=== PATIENT | male | born 1945 | race Caucasian/White ===

== ENCOUNTER 2025-04-12 00:05 | Emergency (ER) | payer MEDICARE, OTHER ==
[~2025-04-12] VITALS: Ht 175.3 cm; Wt 91.0 kg
--- NOTE | 2025-04-12 01:12 | Physician Documentation ---
History of Present Illness ~ Chief Complaint: Groin Pain Stated Complaint: GROIN PAIN Time Seen by MD: 01:11 Mode of Arrival: POV HPI Patient presents to the emergency room for evaluation of right groin pain. 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 He does not have a primary care provider. He had ultrasound performed recently which showed possible epididymitis. He underwent two rounds of antibiotics with no improvement of symptoms. Tonight he had increased right groin pain which was severe in nature however that has greatly improved. He does state that has sometimes hernia we will come out and he is to ice it to push it back in. No dysuria. No fevers. Medication Reconciliation Allergies: Coded Allergies: amoxicillin (Verified Allergy, Unknown, 04/12/25) clavulanic acid (Verified Allergy, Unknown, 04/12/25) Review of Systems ROS All review of systems negative except as per HPI Physical Exam Vital Signs: Temperature: 98.5, Source: Oral, Heart Rate: 73, Respiratory Rate: 16, BP: 141/71, Pulse Oximetry: 95, Weight: 91.000 Oxygen Flow Rate: 0 Physical Exam General: Patient is awake, alert, oriented x4 in no acute distress Head: Normocephalic and atraumatic. Eyes: Conjunctival normal. EOMI. PERRL. ENT: Mucous membranes moist. Neck: Supple, trachea is midline. Chest: Clear to auscultation bilaterally without rales, rhonchi, or wheezes. There is no accessory muscle use or retractions. Cardiac: RRR without murmurs, gallops, or rubs. : Right inguinal hernia noted. Cremasteric reflex intact bilaterally. Testicles soft. Normal external male genitalia. Circumcised. Progress Results/Orders Results/Orders Vital Signs 04/12/25 04/12/25 00:23 00:48 Temp 98.5 Pulse 73 Resp 16 B/P (MAP) 141/71 Pulse Ox 95 O2 Flow Rate 0 Medical Decision Making Additional information obtaine: old records Findings Patient presents to the emergency room for evaluation of right groin pain. Differentials include but are not limited to direct hernia, indirect hernia, incarcerated hernia, testicular torsion, epididymitis. Testicles are soft with no pain elicited with palpation and I do not suspect torsion/epididymitis. Patient's pain greatly improved and although he does have a hernia I do not believe that it is incarcerated. I will refer him to surgery for definitive management. I do not feel he requires emergent labs or imaging. Urinary Diff Dx:Considerations: Include: AAA, Aortic dissection, Appendicitis, Appendicitis train, Bowel obstruction, Bladder outlet obstruc., Cholelithiasis, Choleangitis, Cholecystitis, DJD, Epididymitis, Hepatitis, HNP, Impaction, Musculoskeletal pain, Pancreatitis, Postoperative Comp., Prostatitis, Pyelonephritis, Renal failure, Renal infarction, Strain, Urolithiasis, Urinary Obstruction, Urethritis, Urinary retention, UTI, Other Genital Diff Dx:Considerations: Include: Abscess, Balanitis, Balanoposthitis, Cellulitis, Epididymitis, Entrapment injury, Sena's gangrene, Foreign body, Facture penis, Hydrocele, Inguinal hernia, Post-op Complication, Paraphimosis, Prostatitis, Priapism, Syphilis, Testicular torsion, Torsion-epididymis, Torsion-appendiceal, Urinary retention, Urethritis, Urethritis-chlamydial, Urethritis-gonococcal, UTI, Other Departure Disposition: 01 HOME / SELF CARE / HOMELESS Impression: Primary Impression: Inguinal hernia Condition: Stable Discharge Instructions: Hernia Referrals: NO PRIMARY CARE PROVIDER (PCP) RYNE TEMPLE MD Signature Scribe Signature: No scribe Attestation: The note accurately reflects work and decisions made by me.Awais Flowers MD 04/12/25 01:32 AWAIS FLOWERS MD Apr 12, 2025 01:12
--- NOTE | 2025-04-12 02:25 | RADIOLOGY REPORT ---
Exam: CT CT ABDOMEN PELVIS History: right inguinal pain Comparison Study: None Technique: Multidetector spiral CT of the abdomen was performed from lung bases to pubic symphysis. Imaging was performed without IV contrast. Axial, coronal and sagittal multiplanar reformats were obtained from the axial data set by the technologist. Radiation Dose : 1. Abdomen/Pelvis: CTDIvol 22.24 mGy, DLP 1409.05 mGy*cm. Findings: Evaluation of solid organs is limited due to lack of intravenous contrast use. Lung Bases: No acute or significant lung base finding. Moderate posterior bibasilar atelectasis. Normal heart size. No pleural or pericardial effusion. Liver: The liver is normal in size. No focal lesions. Gallbladder and Biliary Tree: Cholelithiasis. Spleen: Unremarkable Pancreas: The pancreas is grossly normal in appearance. Adrenal Glands: Unremarkable Kidneys: Kidneys are grossly normal without calculi or hydronephrosis. Bladder: Grossly unremarkable for degree of distention. Bowel: The stomach is grossly normal in appearance. Small bowel and colon are normal in caliber and distribution. The appendix is not visualized; however, no secondary findings of acute appendicitis identified. Ascites: Absent Lymphadenopathy: No mesenteric, retroperitoneal or periportal lymphadenopathy. Abdominal Wall and Mesentery: Unremarkable. Vasculature: The visualized abdominal aorta is normal in size and caliber. Atherosclerotic vascular calcifications. Evaluation of abdominal and pelvic vessels is limited due to lack of intravenous contrast. Pelvic Organs: The prostate is enlarged, measuring 5.3 cm transverse. Musculoskeletal: No aggressive focal bony lesions, acute fractures or dislocation. IMPRESSION: 1. No acute abdominal or pelvic findings. 2. Cholelithiasis. 3. Prostatomegaly. Radiation optimization: All CT scans at this facility use at least one of these dose optimization techniques: automated exposure control mA and/or kV adjustment per patient size (includes targeted exams where dose is matched to clinical indication) or iterative reconstruction.
[2025-04-12 02:38] LABS: LEUKOCYTE ESTERASE ,URINE NEGATIVE (Neg); NITRITES, URINE NEGATIVE (Neg); OCCULT BLOOD,URINE TRACE-INTACT (Neg)
[2025-04-12 02:45] LABS: UA COLLECTION TYPE VOIDED
[2025-04-12 02:55] LABS: MUCUS STRANDS NONE SEEN /LPF (Neg); SQUAMOUS EPITHELIAL CELL,UR FEW /LPF (FEW)
[2025-04-12] MEDS ORDERED: LEVO-65 PO (03:47)
[2025-04-12] MEDS: CefTRIAXone/D5W-Rocephin 1gm 50 ML IV ONE (03:49)
[2025-04-12 03:56] VITALS: BP 138/82; PULSE 73; RESP 16; TEMP 98.5; O2SAT 95
--- NOTE | 2025-04-12 04:30 | RADIOLOGY REPORT ---
ULTRASOUND OF SCROTUM AND CONTENTS. INDICATION: groin pain COMPARISON: CT CT ABDOMEN PELVIS on DOS: 04/12/25 TECHNIQUE: Multiple real-time grayscale sonographic and color and duplex Doppler images of the scrotum and its contents were obtained. FINDINGS: The right testicle measures 3.7 x 2.8 x 2.5 cm with moderately increased vascularity. Right hydrocele. The left testicle measures 3.7 x 2.4 x 2.1 cm. Both testicles demonstrate homogeneous echotexture without evidence of focal lesions. The right epididymal head measures 1.4 cm with moderately increased vascularity. The left epididymal head measures 1.3 cm. Complex appearing left epididymal lesion measures 6 x 5 mm. Subsequent color and duplex Doppler interrogation of the testes demonstrated symmetric normal vascular flow to both testicles. IMPRESSION: 1. Suspected right epididymoorchitis. 2. Complex appearing subcentimeter left epididymal lesion.
== END 2025-04-12 04:23 | disposition home or self-care (01) ==
LOC: ER 00:06
DX: K40.90 Unilateral inguinal hernia, without obstruction or gangrene, not specified as recurrent (principal); Z88.1 Allergy status to other antibiotic agents; Z98.890 Other specified postprocedural states
CPT/HCPCS: 74176; 76870; 81001; 93976; 96365; 99285; J0696

== ENCOUNTER 2025-05-27 02:13 | Emergency (ER) | payer MEDICARE, OTHER ==
[~2025-05-27] VITALS: Ht 175.3 cm; Wt 82.7 kg
[~2025-05-27 02:13] MED LIST: LEVO25TA7 PO; LIOT5TAB14 PO; LOSA50TA64 PO; TEMA7.5C2 PO; TRAM50TA2 PO
[2025-05-27 02:15] VITALS: TEMP 98.1
--- NOTE | 2025-05-27 02:31 | Physician Documentation ---
History of Present Illness Chief Complaint: Abdominal Pain Stated Complaint: NO BOWEL MOVEMENT Time Seen by MD: 02:26 Primary Medical Doctor: Hospitalist HPI History, review of systems, physical examination are limited secondary to patient's cognitive impairment. This is a 79-year-old gentleman who presents for evaluation of constipation. The patient says he has not had a bowel movement for the last 8-9 days. The [facility] facility where he resides states that he has been constipated for about 24 hours and has a very small bowel movement earlier this morning. The patient reports diffuse abdominal pain. He states that Colace isn't helping. Continues to pass flatus. Reports no chest pain, no difficulty breathing, no headache. Medication Reconciliation Allergies: Coded Allergies: amoxicillin (Verified Allergy, Unknown, 05/27/25) clavulanic acid (Verified Allergy, Unknown, 05/27/25) Scheduled Levothyroxine Sodium (Levothyroxine Sodium), 1-2 TAB PO DAILY, (Reported) Liothyronine Sodium (Cytomel), 1-2 TAB PO DAILY, (Reported) Losartan Potassium (Losartan Potassium), 1 TAB PO DAILY, (Reported) Temazepam (Temazepam), 1 CAP PO HS, (Reported) Scheduled PRN Tramadol Hcl (Tramadol Hcl), 1 TAB PO Q12H PRN for pain, (Reported) Past Medical History Past Medical History: High Cholesterol, Hypertension, Diabetes, Thyroid (unspecified), Chronic Back Pain, *PSYCH* Past Surgical History: other Patient History: FH: COPD (chronic obstructive pulmonary disease) sister FH: alcohol abuse FATHER FH: heart attack FATHER FH: hepatitis MOTHER FH: kidney cancer sister Review of Systems ROS 10 point review of systems was performed and unless noted above in HPI is negative for acute process/complaint. Physical Exam Vital Signs: Temperature: 98.1, Source: Oral, Heart Rate: 82, Respiratory Rate: 17, BP: 152/77, Pulse Oximetry: 98, Weight: 82.730 Physical Exam GENERAL: Awake, alert, oriented, GCS 15, no apparent distress, non-toxic appearing, answers questions, follows commands appropriately. HEENT: Atraumatic, normocephalic, pupils equal, extraocular muscles intact, sclerae anicteric, mucus membranes moist, oropharynx is clear, no stridor. NECK: supple, full active range of motion, trachea midline, no thyromegaly, no lymphadenopathy, no JVD. CARDIOVASCULAR: regular rate/rhythm, no murmurs/gallops/rubs, Pulses are 2+ in all extremities and symmetric. Capillary refill less than 2 seconds. PULMONARY: Nonlabored, good air movement ,no respiratory distress, speaking in full sentences, clear to auscultation bilaterally, no wheezing, no ronchi, no rales, no accessory muscle use. GASTROINTESTINAL: Soft, non-tender, non-distended, normal active bowel sounds, no organomegaly, no pulsatile masses, no CVA tenderness. NEUROLOGIC: Lucid with normal mental status. Normal facial symmetry. Moves all extremities symmetrically and with purpose. No truncal ataxia. Speech is fluid without evidence of dysarthria or aphasia, no focal deficits appreciated. MUSCULOSKELETAL: There is full range of motion of all extremities. There is no joint pain or joint swelling or joint erythema. There is no muscle pain or tenderness or swelling. EXTREMITIES: warm, well-perfused, no cyanosis, no clubbing, no edema, no acute deformities. Skin: warm, dry, no rashes or lesions, no jaundice, no petechiae orpurpura. No ecchymosis. PSYCHIATRIC: Normal affect, normal insight, normal concentration. Focused exam: No guarding or rebound Progress Results/Orders Results/Orders Vital Signs 05/27/25 02:15 Temp 98.1 Pulse 82 Resp 17 B/P (MAP) 152/77 Pulse Ox 98 EKG/XRAY/CT/US/VASC/MRI EKG : Additional Comment EKG was obtained and interpreted by myself shows sinus rhythm, rate of 83, normal [place] interval, narrow QRS, no QT prolongation, normal axis, no STEMI Medical Decision Making Additional information obtaine: other (EMS) Findings Facility Status: ED Holds, E process The plan was discussed with the patient, who demonstrates clear understanding of the plan and is in agreement with the plan unless otherwise noted in the chart. All questions have been answered, all concerns were addressed unless otherwise documented. I was available throughout their ED stay for frequent reassessment and questions. Differential Diagnoses (considered and possible or likely): [Differential diagnosis considered includes acute appendicitis, acute cholecystitis, pancreatitis, gastritis, PUD, diverticulitis, mesenteric ischemia, abdominal aortic aneurysm, bowel obstruction, enteritis, colitis, fecal impaction, volvulus, IBS, inflammatory bowel disease, specific food intolerance, peritonitis, perforated viscous, malignancy, UTI, abscess, and abdominal pain NOS. History, physical exam, and workup exclude many of the more serious causes listed above. ] ??Differential Diagnoses (considered and unlikely, not requiring evaluation currently): [See above] MDM Data Please see HPI for the following: Independent Historians and external Records Review. Historian: [Patient] Independent Historians: ? EMS, record review] Medication Management: [Reviewed medication list] Social History and determinants: [Reviewed] Please see the body of the note for the following: Any independent interpretat ions of ECG, imaging studies. All vitals signs/haemodynamics, ordered tests were independently reviewed and interpreted by myself. Nursing triage complaint and vitals reviewed, additional nursing notes were reviewed as available and I agree unless otherwise noted or documented in contradiction in the chart Vital Signs: Independently reviewed Labs: Independently interpreted Imaging: Independently interpreted Old Medical Records: Independently reviewed, see HPI for relevant summary and information Pulse Oximetry: [95%] interpreted as [normal on room air] by me [Elementary Education Teacher: [Regular Rate, Regular rhythm, no ectopy, NSR] reviewed and interpreted by me] Additionally notably showing: [Hemodynamics reviewed. Not febrile, not tachycardic, no evidence of hypotension respiratory distress. CBC normal. No anemia, no leukocytosis, normal platelets. Chemistry shows VENKAT versus CKD. Negative troponin. UA is nondiagnostic for UTI. Given patient's age advanced imaging of the abdomen was obtained. It shows right inguinal hernia without obstruction, cholelithiasis, no pericholecystic fluid, moderate colonic stool.] Tests considered but not ordered include: [Ultrasound has been considerably but he does not have right upper quadrant pain] Social Determinants of Health Impact: Patient was evaluated in [facility], or [facility] [place] to healthcare due to below par ratio of patient to medical providers. [] Comorbid Conditions Impacting Present Evaluation and Care/Treatment: [Multiple, see list] Management Discussions with other Healthcare Providers: [None] Treatment and Disposition Medication Management (Given or considered): [Laxatives]. See EMR for details Consideration for Hospitalization/Escalation/Deescalation of Care: Admission for observation has been considered, [however the patient is able to tolerate p.o., their symptoms are controlled, they are able to rely on oral medications, and their chief complaint/diagnosis can be managed on outpatient basis.] ?ED Course:?[No clinical deterioration. No reason for admission.] ?Shared decision making:?[Patient is hemodynamically stable for discharge home with follow with their primary care provider. [ ] Specific and cautious return precautions provided and discussed with full understanding. Any incidental findings were also discussed and follow up recommendations given. [] All questions answered. Patient/family were able to verbalize back return precautions. Patient/family agree to plan. Copies of imaging and laboratory studies were provided.] Code status:?FULL Please see the full Electronic Medical Record for full details of nursing documentation, medications list, other records of complete past medical history and conditions, vital signs, laboratory studies, and any radiologic study interpretations by radiologists. Portions of this note were completed using [employer] dictation software and as a result there may exist minor errors in spelling. I have reviewed elements of past family and social history and agree as included in note. Differential Dx:Considerations: Other (See body of the main note for differential diagnosis) Departure Disposition: 01 HOME / SELF CARE / HOMELESS Impression: Primary Impression: Constipation Additional Impressions: Abdominal pain Inguinal hernia Ruled Out: Bowel obstruction Condition: Improved Discharge Instructions: Constipation, Adult Referrals: NO PRIMARY CARE PROVIDER (PCP) Education Educated: Patient Educated regarding: diagnosis, treatment, prognosis, need for follow up Signature Scribe Signature: No scribe Attestation: The note accurately reflects work and decisions made by me.Miguel Edwards, 05/27/25 02:31 MIGUEL EDWARDS DO May 27, 2025 02:31
--- NOTE | 2025-05-27 02:43 | ELECTROCARDIOGRAPH REPORT ---
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
[2025-05-27 03:03] LABS: MEAN PLATELET VOLUME 5.8 FL (7.4-10.4); RED CELL DISTRIBUTION WIDTH 12.9 % (11.5-14.5)
[2025-05-27 03:14] LABS: LEUKOCYTE ESTERASE ,URINE NEGATIVE (Neg); NITRITES, URINE NEGATIVE (Neg); OCCULT BLOOD,URINE TRACE-INTACT (Neg)
[2025-05-27 03:21] LABS: CREATININE 1.34 MG/DL (0.60-1.10); TOTAL CARBON DIOXIDE 28.3 MMOL/L (24-32); eCRCL 46 ML/MIN; eGFR 52 ML/MIN
[2025-05-27 03:24] LABS: UA COLLECTION TYPE NON-SPECIFIED
[2025-05-27] MEDS ORDERED: iohexol 300mg/ml 100ml inj. ONE (03:55)
[2025-05-27 04:00] VITALS: BP 134/80; PULSE 77; RESP 18; O2SAT 99
[2025-05-27 04:00] LABS: SQUAMOUS EPITHELIAL CELL,UR NONE SEEN /LPF (FEW)
--- NOTE | 2025-05-27 04:55 | RADIOLOGY REPORT ---
EXAM: CT CT ABDOMEN PELVIS W/ IV CONTRAST History: Abdominal pain, constipation Comparison Study: CT CT ABDOMEN PELVIS on DOS: 05/06/25, CT CT ABDOMEN PELVIS on DOS: 04/12/25 TECHNIQUE: CT imaging of the abdomen and pelvis was obtained following the administration of intravenous contrast. Coronal and sagittal reformatted images were reviewed. All CT scans at this medical facility are performed using dose modulation techniques as appropriate to a performed exam including the following: Automated exposure control was utilized; adjustment of the MA and/or KV according to patient size; and use of iterative reconstruction technique. Radiation Dose Information: CT Dose: CTDI volume is 22.5 mGy. Dose-length product is 1269.7 mGy*cm FINDINGS: Imaged portions of the lung bases demonstrate dependent changes. Liver, spleen, pancreas and adrenal glands appear unremarkable. The kidneys enhance symmetrically with tiny cortical cysts. Bilateral extrarenal pelves. There is cholelithiasis, gallbladder prominent measuring 4.7 cm. No evidence of intra or extrahepatic biliary dilatation. There is moderate intracolonic stool. There is a 3.8 cm small bowel containing right inguinal hernia. No evidence of pneumatosis or obstruction. Proximal small bowel loops appear nonobstructed. No free fluid, free air, or adenopathy. No suspicious osseous lesion. IMPRESSION: 1. 3.8 cm nonobstructed small bowel containing right inguinal hernia. 2. Cholelithiasis with mild prominence of the gallbladder. No wall thickening or pericholecystic fluid.
[2025-05-27] MEDS: magnesium citrate 296ml oral solution PO ONE (06:19)
== END 2025-05-27 07:42 | disposition home or self-care (01) ==
LOC: ER 02:14
DX: K40.90 Unilateral inguinal hernia, without obstruction or gangrene, not specified as recurrent (principal); K59.00 Constipation, unspecified; I10 Essential (primary) hypertension; E78.00 Pure hypercholesterolemia, unspecified; E11.9 Type 2 diabetes mellitus without complications; G89.29 Other chronic pain; Z88.1 Allergy status to other antibiotic agents; Z79.899 Other long term (current) drug therapy
CPT/HCPCS: 36415; 74177; 80053; 81001; 83690; 83735; 84484; 85025; 93005; 99285; Q9967